=== PATIENT | female | born 1960 | race Caucasian/White ===

== ENCOUNTER 2016-11-12 09:38 | Emergency (ER) | payer OTHER ==
[2016-11-12 09:52] VITALS: TEMP 97.9
[2016-11-12] MEDS ORDERED: IBUPROFEN 600 MG TAB PO ONE (10:09)
--- NOTE | 2016-11-12 11:38 | EDPHY ---
H & P Stated Complaint: fell onto r arm/wrist - Personal History Current Tetanus/Diphtheria Vaccine: Yes - Medical/Surgical History Hx Asthma: No Hx Chronic Respiratory Disease: No Hx Diabetes: No Hx Cardiac Disease: No Hx Renal Disease: No Hx Cirrhosis: No Hx Alcoholism: No Hx HIV/AIDS: No Hx Splenectomy or Spleen Trauma: No Other PMH: celiac/htn - Social History Smoking Status: Never smoked HPI/ROS: Chief complaint: Right wrist injury History of present illness: This is a 56-year-old female who presents to the emergency department for right wrist injury. Patient reports earlier today she tripped and fell striking her right wrist against a rock. Since then she has had pain and swelling in the wrist. It makes it difficult to move it. No report of open wound. No report of abnormal coolness or paresthesias in the wrist or hand. No report of trauma to other parts of the body. (Jared Alcocer) - Physical Exam Exam: General: Alert, nontoxic Skin: Contusion to the right wrist, no open wounds Musculoskeletal: The right wrist is diffusely tender to palpation she does not want move it secondary to pain. The hand, forearm, elbow, upper arm and shoulder nontender. She is moving the digits of the right hand, the elbow and the shoulder well. Vascular: Radial pulses 2+. Capillary refill brisk in the right hand. Neurologic: Sensation intact throughout the right upper extremity. (Jared Alcocer) Constitutional: Initial Vital Signs Temperature (C) 36.6 C 11/12/16 09:48 Heart Rate 87 11/12/16 09:48 Respiratory Rate 18 11/12/16 09:48 Blood Pressure 157/92 H 11/12/16 09:48 O2 Sat (%) 98 11/12/16 09:48 O2 Delivery Mode Room Air Allergies/Adverse Reactions: lisinopril Allergy (Verified 11/12/16 09:48) Penicillins Allergy (Verified 11/12/16 09:47) Home Medications: Medication Instructions Recorded Brenda Allergy 11/12/16 Diazoxide 11/12/16 Hydrocodone/APAP 5/325 [[place] 1 tab PO Q6H #15 tab 11/12/16 5/325 (*)] Vitamin D3 11/12/16 Medical Decision Making - Diagnostics Imaging: I viewed and interpreted images myself Procedures: Procedure: Splint placement. A sugar-tong splint was applied. After application of the splint I returned and re-examined the patient. The splint was adequately immobilizing the joint and distal to the splint the patient's circulation and sensation was intact. ( Jared Alcocer) ED Course/Re-evaluation: Patient seen under the supervision of my secondary supervising physician Dr. Mena Frost. Patient presents to the emergency department for right wrist injury. The right upper extremity is neurovascularly intact. X-ray confirms a fracture. Patient is splinted. By history and physical exam no evidence of trauma to other parts of the body. [place] She will be discharged with a copy of her x-rays. Home care including pain management is discussed. She is asked to follow up with an orthopedic doctor when she returns home. Return precautions are given. Patient voiced understanding and agreement with plan. (Jared Alcocer) The patient was evaluated and managed by the physician assistant auto center manager. I have reviewed this chart and I agree with the findings and plan of care as documented , as indicated by my signature. I am the secondary supervising physician. ( Mena Frost) Differential Diagnosis: Included but not limited to contusion, sprain or strain, bony fracture, joint dislocation (Jared Alcocer) - Data Points Medications Given: Discontinued Medications Ibuprofen (Motrin) 600 mg PO EDNOW ONE Stop: 11/12/16 10:10 Last Admin: 11/12/16 10:12 Dose: 600 mg Departure - Departure Disposition: Home, Routine, Self-Care Clinical Impression: Wrist fracture Condition: Good Instructions: Wrist Fracture in Adults (ED), Splint Care (ED) Additional Instructions: Follow-up with an orthopedic doctor when you return home In regards to pain control see the following: Use ibuprofen [600] mg [3] times a day for the next 2-3 days for pain In addition You have been prescribed [[place]] for pain. [[place]] contains Tylenol, do not take extra Tylenol/acetaminophen/Apap with it. It is sedating. Elevate the injury as much as possible If symptoms worsen or new symptoms develop return to the emergency room for recheck. Referrals: KRISTA WU MD [Other] - As per Instructions Chris Cardoza MD [Medical Doctor] - As per Instructions Prescriptions: Hydrocodone/APAP 5/325 [[place] 5/325 (*)] 1 tab PO Q6H #15 tab
[2016-11-12 12:00] VITALS: BP 145/87; PULSE 86; RESP 16; O2SAT 99
== END 2016-11-12 12:19 | disposition home or self-care (01) ==
DX: S62.101A Fracture of unspecified carpal bone, right wrist, initial encounter for closed fracture (principal); I10 Essential (primary) hypertension; W01.198A Fall on same level from slipping, tripping and stumbling with subsequent striking against other object, initial encounter
CPT/HCPCS: A4565